=== PATIENT | female | born 1940 | race Caucasian/White ===

== ENCOUNTER 2017-02-21 17:19 | Emergency (ER) | payer OTHER, MEDICARE ==
[~2017-02-21] VITALS: Ht 160 cm; Wt 74.0 kg
[2017-02-21 18:12] LABS: POINT-OF-CARE METER ID UU13113702
[2017-02-21 18:38] LABS: MCHC 34.3 G/DL (30.0-36.0); MCV 93.2 FL (83-99); MEAN PLAT.VOLUME 9.5 uM^3 (9.5-12.4); PLATELET COUNT 315 K/uL (156-360); RBC DIS.WIDTH-CV 13.4 % (11.8-14.6); RBC DIS.WIDTH-SD 46.1 % (39-53); RED BLOOD COUNT 3.97 M/uL (3.80-5.20); WHITE BLOOD COUNT 7.5 K/uL (4.1-10.2)
[2017-02-21 18:46] LABS: CHLORIDE 104 mEq/L (99-109); POTASSIUM 3.6 mEq/L (3.7-5.4); SODIUM 137 mEq/L (136-147)
[2017-02-21 18:48] LABS: GLUCOSE 104 mg/dL (70-99)
[2017-02-21 18:50] LABS: ANION GAP 11 MEQ/L (2-14)
[2017-02-21 18:53] LABS: GFR ESTIMATE (CALCULATED) > 59 mL/min/; UREA NITROGEN (BUN) 12 mg/dL (9-23)
[2017-02-21 18:54] LABS: CREATINE KINASE 77 IU/L (1-294); TOTAL CK 77 IU/L (1-294)
[2017-02-21 19:01] LABS: CK-MB 1.2 ng/mL (0.0-4.9)
[2017-02-21] MEDS ORDERED: LAMICTAL25 MG PO (22:09)
[2017-02-21] MEDS ORDERED: TRAMADOL HCL50 MG PO (22:13)
[2017-02-21 23:39] VITALS: BP 146/86
== END 2017-02-21 23:33 | disposition home or self-care (01) ==
LOC: EME 17:19
PROVIDERS: Emergency Medicine
PROC: 2W39X1Z Immobilization of Left Upper Extremity using Splint (ICD-10-PCS; principal; 2017-02-21)
DX: G40.909 Epilepsy, unspecified, not intractable, without status epilepticus (principal); S52.022A Displaced fracture of olecranon process without intraarticular extension of left ulna, initial encounter for closed fracture; S60.042A Contusion of left ring finger without damage to nail, initial encounter; M25.531 Pain in right wrist; W18.30XA Fall on same level, unspecified, initial encounter; Y92.512 Supermarket, store or market as the place of occurrence of the external cause; I10 Essential (primary) hypertension; Z87.891 Personal history of nicotine dependence
CPT/HCPCS: 70450; 71010; 72125; 73080; 73110; 73130; 80048; 82550; 82553; 85027; 93005; 99281; 99284